=== PATIENT | female | born 1980 | race Hispanic/Latino ===

== ENCOUNTER → 2018-03-22 | Emergency (ER) | payer OTHER ==
[~2018-03-22] VITALS: Ht 165.1 cm; Wt 77.1 kg
[~2018-03-22] MED LIST: CEPHALEXIN500 MG PO
--- OUTSIDE RECORDS SUMMARY | ~2018-03-22 | XMS | Clinical Summary ---
Demographics + + + | Address | [address] | | | [place] [address] | + + + | Home Phone | | + + + | Preferred Language | Unknown | + + + | Marital Status | Single | + + + | Judaism Affiliation | Unknown | + + + | Race | Unknown | + + + | Ethnic Group | or | + + + Author + + + | Author | NON REVENUE LOCATIONS | + + + | Organization | NON REVENUE LOCATIONS | + + + | Address | Unknown | + + + | Phone | Unavailable | + + + Support + + +---------+ + | Name | Relationship | Address | Phone | + + +---------+ + | Isabel Dawn | ECON | Unknown | | + + +---------+ + Care Team Providers + +------+ + | Care Hotel Recreational Facilities Manager Name | Role | Phone | + +------+ + | No Pcp Per Patient | PP | Unavailable | + +------+ + Source Comments DELMY is fully live on both [facility] and [facility] InPatient.[facility] Allergies No Known Allergies Current Medications No known medications Active Problems Not on file Social History + +-------+ +--------+------+ | Tobacco Use | Types | Packs/Day | Years | Date | | | | | Used | | + +-------+ +--------+------+ | Never Smoker | | | | | + +-------+ +--------+------+ + +---+---+---+ | Smokeless Tobacco: | | | | | Never Used | | | | + +---+---+---+ + + + | Sex Assigned at | Date Recorded | | | | + + + | Not on file | | + + + Last Filed Vital Signs + + + + | Vital Sign | Reading | Time Taken | + + + + | Blood Pressure | 104/59 | 09/16/2015 9:05 AM PDT | + + + + | Pulse | 58 | 09/16/2015 9:05 AM PDT | + + + + | Temperature | - | - | + + + + | Respiratory Rate | 18 | 09/16/2015 9:05 AM PDT | + + + + | Oxygen Saturation | 100% | 09/16/2015 9:05 AM PDT | + + + + | Inhaled Oxygen | - | - | | Concentration | | | + + + + | Weight | 77.8 kg (171 lb 8 | 09/16/2015 9:05 AM PDT | | | oz) | | + + + + | Height | 163.2 cm (5' 4.25") | 09/16/2015 9:05 AM PDT | + + + + | Body Mass Index | 29.21 | 09/16/2015 9:05 AM PDT | + + + + Plan of Treatment + + + + + | Health Maintenance | Due Date | Last Done | Comments | + + + + + | Influenza (Flu) | | | | | vaccination (#1) | 8 | | | + + + + + Results Not on filefrom Last 3 Months
--- OUTSIDE RECORDS SUMMARY | ~2018-03-22 | XMS | Clinical Summary ---
Demographics + + + | Address | [address] | | | [place] [address] | + + + | Home Phone | | + + + | Preferred Language | Unknown | + + + | Marital Status | Single | + + + | Jehovah'S Witness Affiliation | Unknown | + + + [...] Team Providers + +------+ + | Care License Inspector Name | Role | Phone | + +------+ + | No Pcp Per Patient | PP | Unavailable | + +------+ + Source Comments DELMY is fully live on both [facility] and [facility] InPatient.[facility] Allergies No Known Allergies Current Medications [...]
--- OUTSIDE RECORDS SUMMARY | 2018-03-22 17:20 | XMS ---
PreManage Notification: TESSIE MAYA Security Territory Business Manager Events No recent Security Events currently on file CRITERIA MET - [facility] - 2 Visits in 30 Days CARE PROVIDERS There are no care providers on record at this time. Clari has no Care Guidelines for this patient. Miguel VISIT COUNT (12 MO.) 2 [facility] TOTAL 2 NOTE: Visits indicate total known visits. ED/UCC VISIT TRACKING (12 MO.) 03/22/2018 17:16 [facility] [place] TYPE: Emergency COMPLAINT: - R PINKY PAIN/INJURY 02/20/2018 21:[address] [facility] [place] TYPE: Emergency COMPLAINT: - R PINKY FINGER INJURY DIAGNOSES: - Exposure to other specified factors, initial encounter - Encounter for immunization - Unspecified injury of right wrist, hand and finger(s), initial encounter - Activity, other interior property and clothing maintenance - Superficial foreign body of right little finger, initial encounter INPATIENT VISIT TRACKING (12 MO.) No inpatient visits to display in this time frame [id number]
== END ==
LOC: ED 17:14
PROC: 0JCJ3ZZ Extirpation of Matter from Right Hand Subcutaneous Tissue and Fascia, Percutaneous Approach (ICD-10-PCS; principal; 2018-03-22)
DX: S60.456A Superficial foreign body of right little finger, initial encounter (principal); W45.8XXA Other foreign body or object entering through skin, initial encounter
CPT/HCPCS: 10120; 73140; 99283